=== PATIENT | female | born 1985 | race Caucasian/White ===

== ENCOUNTER 2024-01-17 08:03 | Inpatient (IN) | payer BC ==
[2024-01-17] MEDS ORDERED: Oxytocin/Normal Saline 30 UNIT/500 ML BAG IV SCH (08:15)
[2024-01-17] MEDS ORDERED: Tranexamic Acid 1,000 MG in Sodium Chloride 0.9% 100 ML IV PRN (08:15)
[2024-01-17] MEDS ORDERED: Sodium Chloride 0.9% 10 ML Syringe FLUSH PRN (08:15)
[2024-01-17] MEDS ORDERED: Carboprost Tromethamine 250 MCG/1 ML Amp IM PRN (08:15)
[2024-01-17] MEDS ORDERED: Methylergonovine 0.2 MG/1 ML Amp IM PRN (08:15)
[2024-01-17] MEDS ORDERED: Ondansetron 4 MG/2 ML SDV IVPUSH PRN (08:15)
[2024-01-17 08:44] LABS: HEMATOCRIT 35.3 % (37.0-47.0); HEMOGLOBIN 11.5 g/dL (12.0-16.0); MEAN CORPUSCULAR HEMOGLOBIN 28.8 pg (27.0-34.0); MEAN CORPUSCULAR HGB CONC 32.6 g/dL (33.0-35.0); MEAN CORPUSCULAR VOLUME 88.3 fL (80-100); WHITE BLOOD CELL COUNT,WBC 7.2 10^3/uL (5.0-10.0)
[2024-01-17] MEDS: Lactated Ringers 1,000 ML IV SCH (08:49)
[2024-01-17] MEDS: Oxytocin/Normal Saline 30 UNIT/500 ML BAG IV SCH (08:53)
[2024-01-17] MEDS: Lactated Ringers 1,000 ML IV ONE (12:31)
[2024-01-17] MEDS ORDERED: fentaNYL 100 MCG/2 ML SDV ONE (13:23)
[2024-01-17] MEDS ORDERED: Phenylephrine HCl In 0.9% NaCl 1 MG/10 ML Syringe IVPUSH PRN (14:20)
[2024-01-17] MEDS ORDERED: ePHEDrine 50 MG/ML SDV IVPUSH PRN (14:20)
[2024-01-17] MEDS ORDERED: Ropivacaine 200 MG in Premix Bag 1 BAG EPIDUR SCH (14:30)
[2024-01-17] MEDS: Prenatal Multivitamin with Calcium/Folic Acid/Iron Tab PO SCH (15:38)
[2024-01-17] MEDS: Misoprostol 400 MCG (4 X 100 MCG TAB) RECTAL PRN (23:21)
[2024-01-18] MEDS ORDERED: Benzocaine/Menthol 20%-0.5% Spray 78 GM Cannister TOP PRN (00:43)
[2024-01-18] MEDS ORDERED: Witch Hazel Medicated Pads 100/Jar TOP PRN (00:43)
[2024-01-18] MEDS: Ibuprofen 800 MG Tab PO PRN (00:46)
[2024-01-18] MEDS: Acetaminophen 325 MG Tab PO PRN (00:46)
[2024-01-18] MEDS: Lidocaine 1% 30 ML SDV INJECT ONE (07:22)
[2024-01-18] MEDS ORDERED: oxyCODONE 5 MG Tab PO PRN ×2 (10:29→10:30)
[2024-01-18] MEDS: Cyclobenzaprine 10 MG Tab PO PRN (15:20)
[2024-01-18] MEDS: Ketorolac 30 MG/ML SDV IVPUSH PRN (15:20)
[2024-01-19] MEDS: Docusate Sodium 100 MG Cap PO PRN (08:10)
[2024-01-19] MEDS ORDERED: fentaNYL 100 MCG/2 ML SDV IV ONE (12:29)
== END 2024-01-19 12:30 | disposition home or self-care (01) | DRG 560 ==
LOC: DL.OB 08:03 → OBSVTOIN 23:06 → DL.OB 23:06
PROVIDERS: ADMIT Obstetrics & Gynecology; ATTEND Obstetrics & Gynecology
PROC: 10E0XZZ Delivery of Products of Conception, External Approach (ICD-10-PCS; principal; 2024-01-17)
PROC: 10907ZC Drainage of Amniotic Fluid, Therapeutic from Products of Conception, Via Natural or Artificial Opening (ICD-10-PCS; 2024-01-17)
PROC: 3E033VJ Introduction of Other Hormone into Peripheral Vein, Percutaneous Approach (ICD-10-PCS; 2024-01-17)
PROC: 3E0R3BZ Introduction of Anesthetic Agent into Spinal Canal, Percutaneous Approach (ICD-10-PCS; 2024-01-17)
PROC: 00HU33Z Insertion of Infusion Device into Spinal Canal, Percutaneous Approach (ICD-10-PCS; 2024-01-17)
PROC: 3E0P7VZ Introduction of Hormone into Female Reproductive, Via Natural or Artificial Opening (ICD-10-PCS; 2024-01-17)
DX: O69.81X0 Labor and delivery complicated by cord around neck, without compression, not applicable or unspecified (principal); Z37.0 Single live birth; O62.2 Other uterine inertia; O99.892 Other specified diseases and conditions complicating childbirth; M25.552 Pain in left hip; G89.29 Other chronic pain; M25.551 Pain in right hip; O71.89 Other specified obstetric trauma; O76 Abnormality in fetal heart rate and rhythm complicating labor and delivery; Z3A.39 39 weeks gestation of pregnancy
CPT/HCPCS: 36415; 51702; 85027; 86850; 86900; 86901; 97161-GP; A9270-GY; J1885; J2590; J3010; J7120